=== PATIENT | female | born 1995 | race Two or more races ===

== ENCOUNTER 2023-02-17 14:46 | Emergency (ER) | payer OTHER ==
[~2023-02-17] VITALS: Ht 165.1 cm; Wt 68.0 kg
[~2023-02-17 14:46] MED LIST: PROVENTIL3 ML/2.5 M IH; TUSSI PRES-B L120 M1 PO
== END 2023-02-17 20:53 | disposition home or self-care (01) ==
LOC: ER 14:46
DX: O20.8 Other hemorrhage in early pregnancy (principal); Z3A.01 Less than 8 weeks gestation of pregnancy